=== PATIENT | male | born 1990 | race Caucasian/White ===

== ENCOUNTER 2017-03-07 20:53 | Emergency (ER) | payer OTHER ==
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
== END 2017-03-07 21:27 | disposition left against medical advice (07) ==
LOC: EC 20:53
DX: T40.1X1A Poisoning by heroin, accidental (unintentional), initial encounter (principal); Z53.21 Procedure and treatment not carried out due to patient leaving prior to being seen by health care provider
CPT/HCPCS: 99284

== ENCOUNTER 2017-06-05 11:33 | Inpatient (IN) | payer OTHER ==
[2017-06-05] MEDS ORDERED: KETOROLAC 30 MG/ML 1 ML VIAL IVP STA (12:44)
[2017-06-05 13:25] LABS: Basophils # (A) 0.1 k/uL (0-0.2); Basophils % (A) 0 %; CH 29.1; CHCM 33.6; Eosinophils # (A) 0.1 k/uL (0-0.7); Eosinophils % (A) 1 %; HCT 46.8 % (39.0-53.0); HDW 2.83; HGB 15.1 gm/dL (13.0-17.5); Luc # (Auto) 0.17; Luc % (Auto) 1; Lymphocytes % (A) 11 %; MCH 28.1 pg (25.0-35.0); MCHC 32.3 g/dL (31.0-37.0); MCV 86.9 fL (80.0-100.0); Mean Platelet Volume 6.3; Monocytes # (A) 0.9 k/uL (0-1.0); Monocytes % (A) 5 %; Neutrophils # (A) 14.4 k/uL (1.3-7.7); Neutrophils % (A) 82 %; RBC 5.38 m/uL (4.30-5.90); RDW 12.8 % (11.5-15.5); WBC 17.6 k/uL (3.8-10.6); WBC (Perox) 16.89
[2017-06-05 13:29] LABS: INR 1.1 (<1.2); Partial Thromboplastin Time 26.1 sec (22.0-30.0); Prothrombin Time 11.1 sec (9.0-12.0)
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
[2017-06-05 13:33] LABS: ALT 29 U/L (21-72); AST 16 U/L (17-59); Alkaline Phosphatase 72 U/L (38-126); Anion Gap 15 mmol/L; Blood Urea Nitrogen 18 mg/dL (9-20); Calcium 9.9 mg/dL (8.4-10.2); Carbon Dioxide 25 mmol/L (22-30); Chloride 98 mmol/L (98-107); Glucose 95 mg/dL (74-99); Non-African American GFR(MDRD) >60 (>60 ml/min/1.73 sqM); Potassium 4.4 mmol/L (3.5-5.1); Sodium 138 mmol/L (137-145); Total Bilirubin 1.7 mg/dL (0.2-1.3); Total Protein 7.8 g/dL (6.3-8.2)
[2017-06-05 13:53] LABS: C Reactive Protein 159.6 mg/L (<10.0)
--- NOTE | 2017-06-05 14:05 | US ---
EXAMINATION TYPE: US venous doppler duplex UE LT DATE OF EXAM: 06/05/2017 COMPARISON: None. CLINICAL HISTORY: Pain. hx of thrombosed left basilic vein. Patient states swelling and redness is g etting worse. Was giving antibiotics 2 days ago. SIDE PERFORMED: Left Left Arm: Appears negative for DVT. Appears POSITIVE for SVT in basilic vein. Scanned area of red p alpable lump, large amount of edema seen. IMPRESSION: 1. THIS EXAMINATION IS NEGATIVE FOR DVT IN THE LEFT ARM. 2. THIS EXAMINATION IS POSITIVE FOR SUPERFICIAL THROMBUS WITHIN THE BASILIC VEIN.
[2017-06-05] MEDS ORDERED: VANCOMYCIN IV PER PHARMACY 1 EACH MISC MISCELLANE PRN (14:22)
[2017-06-05] MEDS ORDERED: SODIUM CHLORIDE 0.9% 1,000 ML IV ONE (14:23)
[2017-06-05] MEDS ORDERED: cefTRIAXone IN SWFI 1,000 MG/10 ML SYRINGE IVP STA (14:25)
[2017-06-05] MEDS ORDERED: LORazepam 2 MG/ML INJ IV PRN (14:30)
[2017-06-05] MEDS ORDERED: oxyCODONE-APAP 5-325MG 1 EACH TAB PO PRN (14:30)
[2017-06-05] MEDS ORDERED: NALOXONE 0.4 MG/ML 1 ML VIAL IV PRN (14:30)
[2017-06-05] MEDS ORDERED: IBUPROFEN 400 MG TAB PO PRN (14:30)
[2017-06-05] MEDS ORDERED: ONDANSETRON 4 MG/2 ML VIAL IVP PRN (14:30)
[2017-06-05] MEDS ORDERED: VANCOMYCIN 1,750 MG in SODIUM CHLORIDE 0.9% 250 ML IVPB ONE (14:45)
[2017-06-05] MEDS ORDERED: ACETAMINOPHEN TAB 500 MG TAB PO STA (14:55)
[2017-06-05] MEDS: SODIUM CHLORIDE 0.9% 1,000 ML IV SCH (15:40)
[2017-06-05 16:43] VITALS: BMI 29.5
[2017-06-05] MEDS: HYDROmorphone 1 MG/ML 1 ML SYRINGE IVP PRN ×2 (16:50→20:55)
[2017-06-05] MEDS ORDERED: NICOTINE 14MG/24HR PATCH TRANSDERM SCH (17:00)
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
[2017-06-05] MEDS: KETOROLAC 30 MG/ML 1 ML VIAL IVP PRN (21:04)
[2017-06-05] MEDS: NICOTINE 14MG/24HR PATCH TRANSDERM SCH (21:06)
[2017-06-05] MEDS: VANCOMYCIN 1,500 MG in SODIUM CHLORIDE 0.9% 250 ML IVPB SCH (21:41)
[2017-06-05] MEDS: ACETAMINOPHEN TAB 325 MG TAB PO PRN (23:04)
[2017-06-06] MEDS: HYDROmorphone 1 MG/ML 1 ML SYRINGE IVP PRN ×8 (00:08→23:43)
[2017-06-06] MEDS: KETOROLAC 30 MG/ML 1 ML VIAL IVP PRN ×4 (05:17→23:44)
[2017-06-06] MEDS: SODIUM CHLORIDE 0.9% 1,000 ML IV SCH ×3 (05:17→20:50)
[2017-06-06] MEDS: VANCOMYCIN 1,500 MG in SODIUM CHLORIDE 0.9% 250 ML IVPB SCH ×3 (05:24→20:45)
[2017-06-06] MEDS ORDERED: PANTOPRAZOLE 40 MG/10 ML VIAL IV SCH (09:00)
[2017-06-06] MEDS ORDERED: cefTRIAXone IN SWFI 1,000 MG/10 ML SYRINGE IVP SCH (09:00)
--- NOTE | 2017-06-06 15:02 | P.PN ---
Subjective Patient was admitted for left forearm cellulitis and thrombophlebitis, redness and pain did improve significantly leukocytosis improved patient probably can be discharged tomorrow oral antibiotics patient already has prescription for Bactrim and Keflex patient didn't use them long enough for cellulitis to get better. So patient can continue these medications. Probably will need nonsteroidal anti-inflammatory medications for, phlebitis Constitutional: Denied any fatigue denied any fever. Cardio vascular: denied any chest pain, palpitations Gastrointestinal denied any nausea vomiting Pulmonary: Denied any shortness of breath cough Neurologic denied any new focal deficits Objective - Vital Signs Vital signs: Vital Signs Temp 99.9 F H 06/06/17 07:00 Pulse 93 06/06/17 07:00 Resp 16 06/06/17 07:00 BP 91/57 06/06/17 07:00 Pulse Ox 96 06/06/17 07:00 Intake & Output 06/05/17 06/06/17 06/06/17 18:59 06:59 18:59 Intake Total 1050 Balance 1050 Weight 88 kg Intake: Intake, IV Titration 1050 Amount Sodium Chloride 0.9% 1, 800 000 ml @ 100 mls/hr IV . Q10H [facility] Rx#:[id number] Vancomycin 1,500 mg In 250 Sodium Chloride 0.9% 250 ml @ 125 mls/hr IVPB Q8H [facility] Rx#:[id number] Other: Voiding Method Toilet # Voids 1 - Exam GENERAL: The patient is alert and oriented x3, not in any acute distress. Well developed, well nourished. HEENT: Pupils are round and equally reacting to light. EOMI. No scleral icterus. No conjunctival pallor. Normocephalic, atraumatic. No pharyngeal erythema. No thyromegaly. CARDIOVASCULAR: S1 and S2 present. No murmurs, rubs, or gallops. PULMONARY: Chest is clear to auscultation, no wheezing or crackles. ABDOMEN: Soft, nontender, nondistended, normoactive bowel sounds. No palpable organomegaly. MUSCULOSKELETAL: No joint swelling or deformity. EXTREMITIES: left forearm while is swollen and red severely tender to touch. Improved compared to yesterday NEUROLOGICAL: Gross neurological examination did not reveal any focal deficits. SKIN: No rashes. - Labs CBC & Chem 7: 06/05/17 13:06/05/17 13:05 Assessment and Plan Plan: #1 sepsis: Secondary to left forearm cellulitis and patient also has superficial thrombi Dissen, phlebitis patient will be started on antibiotics in the form of vancomycin blood cultures were obtained. Patient will be started on ketorolac for pain and phlebitis. #2 superficial thrombophlebitis which doesn't warrant any anticoagulation #3 leukocytosis secondary to assessment #1
[2017-06-06] MEDS: NICOTINE 14MG/24HR PATCH TRANSDERM SCH (20:47)
[2017-06-06] MEDS: ACETAMINOPHEN TAB 325 MG TAB PO PRN (22:54)
[2017-06-07] MEDS: HYDROmorphone 1 MG/ML 1 ML SYRINGE IVP PRN ×7 (02:48→21:15)
[2017-06-07 04:42] LABS: CH 28.4; CHCM 32.8; HCT 35.7 % (39.0-53.0); HDW 2.58; MCH 28.5 pg (25.0-35.0); MCHC 32.8 g/dL (31.0-37.0); MCV 86.9 fL (80.0-100.0); Mean Platelet Volume 6.8; RBC 4.11 m/uL (4.30-5.90); RDW 13.7 % (11.5-15.5); WBC 16.8 k/uL (3.8-10.6)
[2017-06-07] MEDS ORDERED: VANCOMYCIN TROUGH DUE 1 EACH MISC MISCELLANE ONE (05:00)
[2017-06-07 05:08] LABS: HGB 11.7 gm/dL (13.0-17.5)
[2017-06-07 05:41] LABS: Anion Gap 7 mmol/L; Blood Urea Nitrogen 15 mg/dL (9-20); Calcium 8.5 mg/dL (8.4-10.2); Carbon Dioxide 23 mmol/L (22-30); Chloride 105 mmol/L (98-107); Glucose 104 mg/dL (74-99); Non-African American GFR(MDRD) >60 (>60 ml/min/1.73 sqM); Potassium 4.4 mmol/L (3.5-5.1); Sodium 135 mmol/L (137-145)
[2017-06-07] MEDS: KETOROLAC 30 MG/ML 1 ML VIAL IVP PRN ×3 (06:14→18:18)
[2017-06-07] MEDS: VANCOMYCIN 1,500 MG in SODIUM CHLORIDE 0.9% 250 ML IVPB SCH ×3 (06:17→21:16)
[2017-06-07] MEDS: PANTOPRAZOLE 40 MG TABLET PO SCH (08:24)
[2017-06-07] MEDS: SODIUM CHLORIDE 0.9% 1,000 ML IV SCH ×2 (15:17→15:18)
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
--- NOTE | 2017-06-07 19:07 | P.PN ---
Subjective Progress Note Date: 06/07/17 Patient seen bedside in no acute events overnight per nursing staff patient stated that there was increased swelling and redness in his arm, however pain is better controlled he states that his wound had come up to inform a white cold but no drainage is been appreciated patient denied any shooting pains patient tolerated his breakfast and lunch he denies any chest pain or shortness of breath no dizziness or lightheadedness patient states that his fevers and chills subsided Objective - Vital Signs Vital signs: Vital Signs Temp 97.3 F L 06/07/17 15:00 Pulse 96 06/07/17 15:00 Resp 16 06/07/17 15:00 BP 133/69 06/07/17 15:00 Pulse Ox 97 06/07/17 15:00 Intake & Output 06/07/17 06/07/17 06/08/17 06:59 18:59 06:59 Intake Total 770 Balance 770 Intake: Intake, IV Titration 250 Amount Vancomycin 1,500 mg In 250 Sodium Chloride 0.9% 250 ml @ 125 mls/hr IVPB Q8H [facility] Rx#:[id number] Oral 520 Other: Voiding Method Toilet Toilet # Voids 1 4 - Exam GENERAL: The patient is alert and oriented x3, not in any acute distress. Well developed, well nourished. Family at bedside nontoxic-appearing is calm and cooperative HEENT: Pupils are round and equally reacting to light. EOMI. No scleral icterus. No conjunctival pallor. Normocephalic, atraumatic. No pharyngeal erythema. No thyromegaly. CARDIOVASCULAR: S1 and S2 present. No murmurs, rubs, or gallops. PULMONARY: Chest is clear to auscultation, no wheezing or crackles. ABDOMEN: Soft, nontender, nondistended, normoactive bowel sounds. No palpable organomegaly. MUSCULOSKELETAL: No joint swelling or deformity. EXTREMITIES: left forearm while is swollen and red severely tender to touch there's measured 13 cm x 7 cm area of raised indurated wound that has central wood no drainage or bleeding it's tender to the touch it was marked with a skin marker at the surrounding edges. NEUROLOGICAL: Gross neurological examination did not reveal any focal deficits. SKIN: No rashes. - Labs CBC & Chem 7: 06/07/17 04:30 06/07/17 04:30 Labs: Abnormal Lab Results - Last 24 Hours (Table) 06/07/17 06/07/17 Range/Units 04:30 04:30 WBC 16.8 H (3.8-10.6) k/uL RBC 4.11 L (4.30-5.90) m/uL Hgb 11.7 L D (13.0-17.5) gm/dL Hct 35.7 L (39.0-53.0) % Sodium 135 L (137-145) mmol/L Glucose 104 H (74-99) mg/dL Microbiology - Last 24 Hours (Table) 06/05/17 13:05 Blood Culture - Preliminary Blood No Growth after 48 hours Assessment and Plan Assessment: Plan: #1 sepsis: Secondary to left forearm cellulitis and patient also has superficial thrombes is seen, phlebitis patient will be started on antibiotics in the form of vancomycin blood cultures were obtained on 06/05/2017 and are no growth after 48 hours. Due to the increasing size general surgery will be consulted for possible I&D, if so cultures of the wound should be sent for Gram stain and growth. Patient instructed on proper hygiene as he is known to be consistently picking at his skin he's had multiple abscesses drained in the past Patient to continue on Percocet 5-325 by mouth every 4 hours for pain along with IV Dilaudid when necessary as ordered ketorolac for pain and phlebitis. #2 superficial thrombophlebitis which doesn't warrant any anticoagulation continue treatment above #3 leukocytosis secondary to assessment #1
[2017-06-07] MEDS: NICOTINE 14MG/24HR PATCH TRANSDERM SCH (21:15)
[2017-06-08] MEDS: HYDROmorphone 1 MG/ML 1 ML SYRINGE IVP PRN ×7 (00:12→22:11)
[2017-06-08] MEDS: KETOROLAC 30 MG/ML 1 ML VIAL IVP PRN ×4 (00:12→18:56)
[2017-06-08] MEDS: VANCOMYCIN 1,500 MG in SODIUM CHLORIDE 0.9% 250 ML IVPB SCH ×3 (05:10→22:11)
[2017-06-08] MEDS: PANTOPRAZOLE 40 MG TABLET PO SCH (07:30)
[2017-06-08 10:14] LABS: ALT 43 U/L (21-72); AST 17 U/L (17-59); Alkaline Phosphatase 50 U/L (38-126); Anion Gap 8 mmol/L; Blood Urea Nitrogen 14 mg/dL (9-20); C Reactive Protein 84.4 mg/L (<10.0); Carbon Dioxide 25 mmol/L (22-30); Chloride 104 mmol/L (98-107); Glucose 107 mg/dL (74-99); Magnesium 2.1 mg/dL (1.6-2.3); Non-African American GFR(MDRD) >60 (>60 ml/min/1.73 sqM); Phosphorus 3.2 mg/dL (2.5-4.5); Potassium 4.5 mmol/L (3.5-5.1); Sodium 137 mmol/L (137-145); Total Bilirubin 0.6 mg/dL (0.2-1.3); Total Protein 5.9 g/dL (6.3-8.2)
[2017-06-08 10:30] LABS: Basophils # (A) 0.1 k/uL (0-0.2); Basophils % (A) 1 %; CH 28.9; CHCM 32.5; Eosinophils # (A) 0.4 k/uL (0-0.7); Eosinophils % (A) 3 %; HCT 38.6 % (39.0-53.0); Luc # (Auto) 0.11; Luc % (Auto) 1; Lymphocytes # (A) 1.4 k/uL (1.0-4.8); Lymphocytes % (A) 12 %; MCH 27.8 pg (25.0-35.0); MCHC 31.2 g/dL (31.0-37.0); MCV 89.2 fL (80.0-100.0); Mean Platelet Volume 6.9; Monocytes # (A) 0.7 k/uL (0-1.0); Monocytes % (A) 6 %; Neutrophils # (A) 9.1 k/uL (1.3-7.7); Neutrophils % (A) 78 %; RBC 4.33 m/uL (4.30-5.90); RDW 12.4 % (11.5-15.5); WBC 11.8 k/uL (3.8-10.6); WBC (Perox) 12.36
[2017-06-08 11:29] LABS: Erythrocyte Sedimentation Rate 52 mm/hr (0-15)
--- NOTE | 2017-06-08 11:54 | P.PN ---
Subjective Progress Note Date: 06/08/17 Patient seen bedside in no acute events overnight per nursing staff. Patient stated that he woke uop this morning and felt something dripping down his left arm and when he uncovered his blanket he noticed his abscess to be draining purulent blood tinged fluid in copious amount, he stated the swelling is somewhat improved and the erythema has receded from the premarked skin marking. Objective - Vital Signs Vital signs: Vital Signs Temp 98.9 F 06/08/17 07:00 Pulse 89 06/08/17 07:00 Resp 16 06/08/17 07:00 BP 115/66 06/08/17 07:00 Pulse Ox 97 06/08/17 07:00 Intake & Output 06/07/17 06/08/17 06/08/17 18:59 06:59 18:59 Intake Total 770 Balance 770 Weight 88 kg Intake: Intake, IV Titration 250 Amount Vancomycin 1,500 mg In 250 Sodium Chloride 0.9% 250 ml @ 125 mls/hr IVPB Q8H HUNTER Rx#:[id number] Oral 520 Other: Voiding Method Toilet Toilet # Voids 4 2 - Exam GENERAL: The patient is alert and oriented x3, not in any acute distress. Well developed, well nourished. nontoxic-appearing is calm and cooperative HEENT: Pupils are round and equally reacting to light. EOMI. No scleral icterus. No conjunctival pallor. Normocephalic, atraumatic. No pharyngeal erythema. No thyromegaly. CARDIOVASCULAR: S1 and S2 present. No murmurs, rubs, or gallops. PULMONARY: Chest is clear to auscultation, no wheezing or crackles. ABDOMEN: Soft, nontender, nondistended, normoactive bowel sounds. No palpable organomegaly. MUSCULOSKELETAL: No joint swelling or deformity. EXTREMITIES: left forearm while is swollen from AC down to the hand, there is dressing wrapped and is stained with purulent blood material, no odor,no streaking appreciated. no axilla lymphadenopathy NEUROLOGICAL: Gross neurological examination did not reveal any focal deficits. SKIN: see above . - Labs CBC & Chem 7: 06/08/17 09:25 06/08/17 09:25 Labs: Abnormal Lab Results - Last 24 Hours (Table) 06/08/17 06/08/17 Range/Units 09:25 09:25 WBC 11.8 H (3.8-10.6) k/uL Hgb 12.0 L (13.0-17.5) gm/dL Hct 38.6 L (39.0-53.0) % Neutrophils # 9.1 H (1.3-7.7) k/uL ESR 52 H (0-15) mm/hr Glucose 107 H (74-99) mg/dL C-Reactive Protein 84.4 H (<10.0) mg/L Total Protein 5.9 L (6.3-8.2) g/dL Albumin 3.0 L (3.5-5.0) g/dL Microbiology - Last 24 Hours (Table) 06/05/17 13:05 Blood Culture - Preliminary Blood No Growth after 48 hours Assessment and Plan Assessment: Plan: #1 sepsis: Secondary to left forearm cellulitis and patient also has superficial thrombus is seen, patient to continue with IV vanc. blood cultures were obtained on 06/05/2017 and are no growth to date. Surgery was consulted and evaluated the patient and have planned to take him for I&D in the OR, will need cultures of the wound should be sent for Gram stain and Cx. Patient instructed on proper hygiene as he is known to be consistently picking at his skin he's had multiple abscesses drained in the past Patient to continue on Percocet 5-325 by mouth every 4 hours for pain along with IV Dilaudid when necessary as ordered ketorolac for pain and phlebitis. #2 superficial thrombophlebitis which doesn't warrant any anticoagulation continue treatment above, vascular surgery to take to OR for I&D and Possible Vein thrombectomy #3 leukocytosis secondary to assessment #1- improving with IV ABX today WBC is 11.8 down from 16.8 yesterday, Continue to monitor
[2017-06-08] MEDS ORDERED: IV FLUID CONTINUATION 1,000 ML IV ONE (13:34)
[2017-06-08] MEDS ORDERED: LIDOCAINE 1% INJ 10MG/ML (20 ML MDV) ONE (14:26)
[2017-06-08] MEDS ORDERED: SUCCINYLCHOLINE CHLORIDE 100 MG/5 ML SYR IV ONE (14:26)
[2017-06-08] MEDS ORDERED: fentaNYL (PF) 50 MCG/ML 2 ML AMP ONE (14:26)
[2017-06-08] MEDS ORDERED: PROPOFOL 10 MG/ML 20 ML VIAL IV ONE (14:26)
[2017-06-08] MEDS ORDERED: HYDROmorphone (PF) 1 MG/ML ONE (14:26)
[2017-06-08] MEDS ORDERED: MIDAZOLAM 2 MG/2 ML VIAL ONE (14:26)
[2017-06-08] MEDS ORDERED: LACTATED RINGERS 1,000 ML IV ONE (14:42)
[2017-06-08] MEDS ORDERED: HYDROGEN PEROXIDE BOTTLE TOPICAL ONE (14:45)
[2017-06-08] MEDS ORDERED: HYDROmorphone 1 MG/ML 1 ML SYRINGE IVP ONE (15:31)
[2017-06-08 17:09] VITALS: RESP 18
[2017-06-08] MEDS: NICOTINE 14MG/24HR PATCH TRANSDERM SCH (20:29)
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
[2017-06-09] MEDS: KETOROLAC 30 MG/ML 1 ML VIAL IVP PRN ×3 (03:45→15:42)
[2017-06-09] MEDS: HYDROmorphone 1 MG/ML 1 ML SYRINGE IVP PRN ×5 (03:45→15:41)
[2017-06-09] MEDS: VANCOMYCIN 1,500 MG in SODIUM CHLORIDE 0.9% 250 ML IVPB SCH ×2 (06:15→12:42)
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
[2017-06-09] MEDS: PANTOPRAZOLE 40 MG TABLET PO SCH (07:35)
[2017-06-09 07:46] LABS: Basophils # (A) 0.1 k/uL (0-0.2); Basophils % (A) 1 %; CH 27.8; CHCM 32.6; Eosinophils # (A) 0.4 k/uL (0-0.7); Eosinophils % (A) 4 %; HCT 36.8 % (39.0-53.0); HDW 2.71; HGB 12.1 gm/dL (13.0-17.5); Luc # (Auto) 0.17; Luc % (Auto) 2; Lymphocytes # (A) 1.4 k/uL (1.0-4.8); Lymphocytes % (A) 16 %; MCH 28.2 pg (25.0-35.0); MCV 85.5 fL (80.0-100.0); Mean Platelet Volume 7.1; Monocytes # (A) 0.5 k/uL (0-1.0); Monocytes % (A) 6 %; Neutrophils # (A) 6.5 k/uL (1.3-7.7); Neutrophils % (A) 72 %; RBC 4.31 m/uL (4.30-5.90); RDW 13.2 % (11.5-15.5); WBC (Perox) 8.95
[2017-06-09 07:54] LABS: Anion Gap 7 mmol/L; Blood Urea Nitrogen 15 mg/dL (9-20); Calcium 8.6 mg/dL (8.4-10.2); Carbon Dioxide 28 mmol/L (22-30); Chloride 104 mmol/L (98-107); Glucose 96 mg/dL (74-99); Non-African American GFR(MDRD) >60 (>60 ml/min/1.73 sqM); Potassium 4.7 mmol/L (3.5-5.1); Sodium 139 mmol/L (137-145)
--- NOTE | 2017-06-09 09:01 | P.PN ---
Progress Note - Text 26 white male, patient had a left I&D and debridement of the forearm today is postoperative day 1 we have changed her dressing base of the wound is clean no discharge noted culture is pending we will use Aquacel silver rope with local wound care and IV antibiotic
--- NOTE | 2017-06-09 14:18 | P.PN ---
Subjective Progress Note Date: 06/09/17 Patient seen bedside in no acute events overnight per nursing staff. Pt is s/p POD#1 from I&D of left forearm abscess, cultures sent, he tolerated the procedure well. He has no complaints other than eagerness to go home. Objective - Vital Signs Vital signs: Vital Signs Temp 97.2 F L 06/09/17 07:00 Pulse 82 06/09/17 07:00 Resp 18 06/09/17 07:00 BP 108/64 06/09/17 07:00 Pulse Ox 97 06/09/17 07:00 Intake & Output 06/08/17 06/09/17 06/09/17 18:59 06:59 18:59 Intake Total 550 1200 Output Total 15 Balance 535 1200 Intake: IV 550 Oral 1200 Output: Estimated Blood Loss 15 Other: Voiding Method Toilet Toilet # Voids 2 2 2 # Bowel Movements 0 - Exam GENERAL: The patient is alert and oriented x3, not in any acute distress. Well developed, well nourished. nontoxic-appearing is calm and cooperative HEENT: Pupils are round and equally reacting to light. EOMI. No scleral icterus. No conjunctival pallor. Normocephalic, atraumatic. No pharyngeal erythema. No thyromegaly. CARDIOVASCULAR: S1 and S2 present. No murmurs, rubs, or gallops. PULMONARY: Chest is clear to auscultation, no wheezing or crackles. ABDOMEN: Soft, nontender, nondistended, normoactive bowel sounds. No palpable organomegaly. MUSCULOSKELETAL: No joint swelling or deformity. EXTREMITIES: left forearm has post surgical dressing in place and that was not removed,, the dressing is clean and dry intact, Hand appears less swollen than the day prior. NEUROLOGICAL: Gross neurological examination did not reveal any focal deficits. SKIN: see above . - Labs CBC & Chem 7: 06/09/17 07:16 06/09/17 07:16 Labs: Abnormal Lab Results - Last 24 Hours (Table) 06/09/17 Range/Units 07:16 Hgb 12.1 L (13.0-17.5) gm/dL Hct 36.8 L (39.0-53.0) % Microbiology - Last 24 Hours (Table) 06/08/17 13:00 Gram Stain - Preliminary Arm - Left Wound Culture - Preliminary 06/08/17 14:40 Gram Stain - Preliminary Arm - Left Wound Culture - Preliminary 06/08/17 14:40 Anaerobic Culture - Preliminary Arm - Left 06/05/17 13:05 Blood Culture - Preliminary Blood No Growth after 72 hours Assessment and Plan Assessment: Plan: #1 sepsis: Secondary to left forearm abscess with cellulitis pod #1 from I&D and patient also has superficial thrombus is seen, patient to continue with IV vanc. blood cultures were obtained on 06/05/2017 and are no growth to date. I& D cx are still pending. ID on case and recommend patient to stay while Cx results are back in order to determine the ABX treatment, He had infection with MSSA in the past and has PCN allergy, Patient instructed on proper hygiene as he is known to be consistently picking at his skin he's had multiple abscesses drained in the past Patient to continue on Percocet 5-325 by mouth every 4 hours for pain along with IV Dilaudid when necessary as ordered ketorolac for pain and phlebitis. #2 superficial thrombophlebitis which doesn't warrant any anticoagulation continue treatment above, #3 leukocytosis secondary to assessment #1- improving with IV ABX today WBC is 9.0 down from 17.6 on admission, Continue to monitor #4 On going tobacco use and abuse, patient consuled for >10 minutes on harmful effect of smoking and overall health and delay in wound healing, he was advised to quit, DVT / GI prophylaxsis per protocol anticipate d/c when cx return and appropriate ABX can be given per ID recs
[2017-06-09 14:51] VITALS: BP 124/67; PULSE 86; TEMP 98.9
--- NOTE | 2017-06-09 15:18 | PN ---
PROGRESS NOTE DATE OF SERVICE: 06/09/2017 REASON FOR FOLLOWUP: Left of forearm cellulitis. INTERVAL HISTORY: The patient is afebrile. He is status post drainage of left forearm abscess. Overall, pain to the area is currently controlled. Denies any chest pain, shortness of breath, or cough. No abdominal pain or any diarrhea. PHYSICAL EXAMINATION: Blood pressure 108/64 with a pulse of 82, temperature 97.2. He is 97% on room air. General description is a middle-aged male lying in bed, in no distress. RESPIRATORY SYSTEM: Unlabored breathing, clear to auscultation anteriorly. HEART: S1, S2. Regular rate and rhythm. ABDOMEN: Soft, no tenderness. Left forearm wound deep with good granulation tissue at the base; surrounding swelling, redness and irritation has improved. LABS: Hemoglobin is 12.1, white count 9.0, BUN of 15, creatinine 0.79. Wound culture currently pending. DIAGNOSTIC IMPRESSION AND PLAN: Patient left forearm abscess, status post drainage. Patient at this time will be continued on the vancomycin. Await further culture to finalize to determine discharge antibiotics. Local wound care with Aquacel Silver packing. Continue supportive care. MMODL / IJN: [id number] /
[2017-06-10] MEDS ORDERED: VANCOMYCIN TROUGH DUE 1 EACH MISC MISCELLANE ONE (05:00)
== END 2017-06-09 17:24 | disposition left against medical advice (07) | DRG 854 ==
LOC: EC 11:33 → 4MS4W 14:19
PROVIDERS: ADMIT Internal Medicine; ATTEND Internal Medicine
PROC: 0JBH0ZZ Excision of Left Lower Arm Subcutaneous Tissue and Fascia, Open Approach (ICD-10-PCS; principal; 2017-06-08 11:40)
DX: A41.9 Sepsis, unspecified organism (principal); L02.414 Cutaneous abscess of left upper limb; I80.8 Phlebitis and thrombophlebitis of other sites; L03.114 Cellulitis of left upper limb; F14.11 Cocaine abuse, in remission; F17.200 Nicotine dependence, unspecified, uncomplicated; Z88.0 Allergy status to penicillin; V86.96XA Unspecified occupant of dirt bike or motor/cross bike injured in nontraffic accident, initial encounter
CPT/HCPCS: 36415; 80048; 80053; 80202; 83735; 84100; 85025; 85027; 85610; 85652; 85730; 86140; 87040; 87070; 87075; 87205; 96374; 96375; 99285

== ENCOUNTER 2019-08-13 13:12 | Emergency (ER) | payer OTHER ==
[2019-08-13 13:22] VITALS: BP 124/86; PULSE 97; RESP 20; TEMP 98.7
[2019-08-13] MEDS ORDERED: ACETAMINOPHEN TAB 500 MG TAB PO STA (13:53)
--- NOTE | 2019-08-13 14:33 | XR ---
EXAMINATION TYPE: XR chest 2V DATE OF EXAM: 08/13/2019 COMPARISON: HISTORY: Cough and fever TECHNIQUE: Frontal and lateral views of the chest are obtained. FINDINGS: There is no focal air space opacity, pleural effusion, or pneumothorax seen. The cardiac silhouette size is within normal limits. The osseous structures are intact. IMPRESSION: No acute cardiopulmonary process.
--- NOTE | 2019-08-13 14:47 | ED ---
URI HPI - General Chief Complaint: Upper Respiratory Infection Stated Complaint: poss flu/high fever Time Seen by Provider: 08/13/19 13:40 Source: patient, RN notes reviewed, old records reviewed Mode of arrival: ambulatory Limitations: no limitations - History of Present Illness Initial Comments: 29-year-old male without any past medical history presents to the emergency department for a chief complaint of "flulike symptoms." Patient states he has had congestion sore throat cough since yesterday morning. States he feels febrile and has had body aches. States he has been taking Motrin and Tylenol. Patient is a current every day smoker. States he has multiple sick contacts at home. Patient actually presents with his for other feeling hours to have the same symptoms.Patient has no other complaints at this time including shortness of breath, chest pain, abdominal pain, nausea or vomiting, headache, or visual changes. - Related Data Home Medications Medication Instructions Recorded Confirmed Sulfamethox-Tmp 800-160Mg [Bactrim 2 tab PO Q12HR 06/05/17 06/05/17 DS 800-160 mg] Previous Rx's Medication Instructions Recorded Cephalexin [Keflex] 500 mg PO Q6HR #40 cap 06/03/17 Ketorolac [Toradol] 10 mg PO Q6HR #20 tab 06/03/17 Acetaminophen [Tylenol] 500 mg PO Q4-6H PRN #20 tab 08/13/19 Ibuprofen [Motrin] 600 mg PO Q6HR PRN #20 tab 08/13/19 Oseltamivir [Tamiflu] 75 mg PO Q12HR #10 cap 08/13/19 Allergies Allergy/AdvReac Type Severity Reaction Status Date / Time Penicillins Allergy Unknown Verified 08/13/19 13:19 Review of Systems ROS Statement: Those systems with pertinent positive or pertinent negative responses have been documented in the HPI. ROS Other: All systems not noted in ROS Statement are negative. Past Medical History Past Medical History: No Reported History History of Any Multi-Drug Resistant Organisms: None Reported Past Surgical History: No Surgical Hx Reported Past Psychological History: No Psychological Hx Reported Smoking Status: Current every day smoker Past Alcohol Use History: None Reported Past Drug Use History: None Reported - Past Family History Mother Family Medical History: No Reported History Father Family Medical History: No Reported History General Exam Limitations: no limitations General appearance: alert, in no apparent distress Head exam: Present: atraumatic, normocephalic, normal inspection Eye exam: Present: normal appearance, PERRL, EOMI. Absent: scleral icterus, conjunctival injection, periorbital swelling ENT exam: Present: normal exam, normal oropharynx, mucous membranes moist, TM's normal bilaterally, normal external ear exam Neck exam: Present: normal inspection, full ROM. Absent: tenderness, meningismus, lymphadenopathy Respiratory exam: Present: normal lung sounds bilaterally. Absent: respiratory distress, wheezes, rales, rhonchi, stridor Cardiovascular Exam: Present: regular rate, normal rhythm, normal heart sounds. Absent: systolic murmur, diastolic murmur, rubs, gallop, clicks GI/Abdominal exam: Present: soft, normal bowel sounds. Absent: distended, t enderness, guarding, rebound, rigid Neurological exam: Present: alert Course Vital Signs 08/13/19 08/13/19 13:20 13:56 Temperature 98.7 F Pulse Rate 97 Respiratory 20 20 Rate Blood Pressure 124/86 O2 Sat by Pulse 97 Oximetry Medical Decision Making - Medical Decision Making Patient is well-appearing, nontoxic. Vitals are stable. He is afebrile at this time. Chest x-ray shows no acute cardio pulmonary process. Influenza B is positive. Strep is negative. Discussed risks versus benefits of Tamiflu. At this time patient wishes for me to write prescription and he will decide later. He does request perception for Motrin and Tylenol. Discussed drinking any fluids and following up with primary care in 1-2 days. Discussed returning here if he has any worsening symptoms. - Lab Data Lab Results 08/13/19 08/13/19 Range/Units 13:30 13:53 Influenza Type A RNA Not Detected (Not Detectd) Influenza Type B (PCR) Detected H (Not Detectd) Group A Strep Rapid Negative (Negative) Disposition Clinical Impression: Influenza B Disposition: HOME SELF-CARE Condition: Good Instructions (If sedation given, give patient instructions): Oseltamivir (By mouth), Influenza (ED) Prescriptions: Ibuprofen [Motrin] 600 mg PO Q6HR PRN #20 tab PRN Reason: Pain Oseltamivir [Tamiflu] 75 mg PO Q12HR #10 cap Acetaminophen [Tylenol] 500 mg PO Q4-6H PRN #20 tab PRN Reason: Pain Is patient prescribed a controlled substance at d/c from ED?: No Referrals: Sheridan Griffith MD [Primary Care Provider] - 1-2 days Time of Disposition: 14:45
== END 2019-08-13 15:07 | disposition home or self-care (01) ==
LOC: EC 13:12
DX: J10.1 Influenza due to other identified influenza virus with other respiratory manifestations (principal); F17.200 Nicotine dependence, unspecified, uncomplicated; Z88.0 Allergy status to penicillin
CPT/HCPCS: 71046; 87081; 87430; 87502; 99284

== ENCOUNTER 2022-07-25 20:50 | Emergency (ER) | payer OTHER ==
[2022-07-25 20:58] VITALS: RESP 18; TEMP 97.9
[2022-07-25] MEDS ORDERED: DIPH,PERTUS(ACELL)TETVAC-LF 0.5 ML VIAL IM ONE (21:12)
[2022-07-25] MEDS ORDERED: MORPHINE SULFATE 4 MG/ML SYRINGE IM STA ×2 (21:33→23:20)
[2022-07-25] MEDS ORDERED: LIDOCAINE 1% PF 10 MG/ML (5 ML AMP) SQ ONE (22:09)
--- NOTE | 2022-07-25 22:10 | XR ---
EXAMINATION TYPE: XR finger RT DATE OF EXAM: 07/25/2022 COMPARISON: NONE HISTORY: Laceration TECHNIQUE: 3 views FINDINGS: 3 views of the right middle finger were obtained. There is small tight S-shaped linear dens ity measuring 6 mm projected in the soft tissues adjacent to the mid shaft of the proximal phalanx of the middle finger and consistent with a foreign body. No fracture seen. Joint spaces are normal. IMPRESSION: No fracture. Anterior soft tissue foreign body.
[2022-07-25] MEDS ORDERED: KETOROLAC 15 MG/ML 1 ML VIAL IM STA (23:20)
--- NOTE | 2022-07-25 23:24 | ED ---
General Adult HPI - General Chief complaint: Extremity Injury, Upper Stated complaint: R hand finger lac Time Seen by Provider: 07/25/22 21:01 Source: patient Mode of arrival: ambulatory Limitations: no limitations - History of Present Illness Initial comments: This is a 32-year-old male with no reported past medical history presents emergency department for a finger laceration. The patient stated that he was drinking at his [facility] [employer] when he fell, landing on a [employer] bulb causing a laceration to the base of his right index finger. The patient noted immediately that he was able to move his finger and had significant pain speaking rate to the emergency department. The patient denied any other lacerations or trauma. The patient did not know his last tetanus shot. The patient was resting in bed comfortably without any lightheadedness or dizziness - Related Data Home Medications Medication Instructions Recorded Confirmed Sulfamethox-Tmp 800-160Mg [Bactrim 2 tab PO Q12HR 06/05/17 06/05/17 DS 800-160 mg] Previous Rx's Medication Instructions Recorded Cephalexin [Keflex] 500 mg PO Q6HR #40 cap 06/03/17 Ketorolac [Toradol] 10 mg PO Q6HR #20 tab 06/03/17 Acetaminophen [Tylenol] 500 mg PO Q4-6H PRN #20 tab 08/13/19 Ibuprofen [Motrin] 600 mg PO Q6HR PRN #20 tab 08/13/19 Oseltamivir [Tamiflu] 75 mg PO Q12HR #10 cap 08/13/19 Naproxen [Naprosyn] 500 mg PO BID #30 tab 07/25/22 Allergies Allergy/AdvReac Type Severity Reaction Status Date / Time Penicillins Allergy Unknown Verified 07/25/22 20:58 Review of Systems ROS Statement: Those systems with pertinent positive or pertinent negative responses have been documented in the HPI. ROS Other: All systems not noted in ROS Statement are negative. Past Medical History Past Medical History: No Reported History History of Any Multi-Drug Resistant Organisms: None Reported Past Surgical History: No Surgical Hx Reported Past Psychological History: No Psychological Hx Reported Smoking Status: Vaper Past Alcohol Use History: None Reported Past Drug Use History: None Reported - Past Family History Mother Family Medical History: No Reported History Father Family Medical History: No Reported History General Exam Limitations: no limitations General appearance: alert, in no apparent distress Head exam: Present: atraumatic, normocephalic, normal inspection Eye exam: Present: normal appearance, PERRL Pupils: Present: normal accommodation ENT exam: Present: normal exam, normal oropharynx, mucous membranes moist Neck exam: Present: normal inspection, full ROM Respiratory exam: Present: normal lung sounds bilaterally Cardiovascular Exam: Present: regular rate, normal rhythm, normal heart sounds GI/Abdominal exam: Present: soft, normal bowel sounds Extremities exam: Present: normal inspection, full ROM, other (Approximately 4 similar laceration noted to the base of the right middle finger with no range of motion secondary to likely tendon laceration.) Back exam: Present: normal inspection, full ROM Neurological exam: Present: alert, oriented X3, CN II-XII intact Psychiatric exam: Present: normal affect, normal mood Skin exam: Present: warm, dry Course Vital Signs 07/25/22 07/26/22 20:55 00:47 Temperature 97.9 F 97.9 F Pulse Rate 88 90 Respiratory 18 18 Rate Blood Pressure 97/59 109/68 O2 Sat by Pulse 99 99 Oximetry Procedures - Laceration Laceration #1 Consent Obtained: verbal consent Indication: laceration Site: hand (Base of the right middle finger) Size (cm): 4 Description: linear Depth: simple, single layer, involves tendon Sedation/Analgesia: none Anesthetic Used: lidocaine 1% Anesthesia Technique: local infiltration Amount (mls): 7 Pre-repair: irrigated extensively, foreign body removed Type of Sutures: nylon Size of Sutures: 5-0 Number of Sutures: 6 Technique: simple, interrupted Complications: nerve injury Patient Tolerated Procedure: well - Orthopedic Splinting/Casting Injury #1 Side: right Upper Extremity Injury Location: finger (Middle finger) Upper Extremity Immobilizer: aluminum form splint (Metal finger splint) Medical Decision Making - Medical Decision Making Was pt. sent in by a medical professional or institution? @ -No Did you speak to anyone other than the patient for history? @ -No Did you review nursing and triage notes? @ -Triage notes were obtained and reviewed Were old charts reviewed? @ -No Differential Diagnosis? @ -Finger laceration, tendon rupture, tendon laceration, muscle laceration EKG interpreted by me (3pts min.)? @ -[none] X-rays interpreted by me (1pt min.)? @ -X-ray of the right middle finger was obtained and was interpreted by myself and showed a superficial foreign body otherwise no fracture noted CT interpreted by me (1pt min.)? @ -[none] U/S interpreted by me (1pt. min.)? @ -[none] What testing was considered but not performed? (CT, X-rays, U/S, labs)? Why? @None What meds were considered but not given? Why? @ -[none] Did you discuss the management of the patient with other professionals? @ -No Did you reconcile home meds? @ -[none] Was smoking cessation discussed for >3mins.? @ -Yes Was critical care preformed (if so, how long)? @ -[none] Were there social determinants of health that impacted care today? How? (Homelessness, low income, unemployed, alcoholism, drug addiction, transportation, low edu. Level, literacy, decrease access to med. care, [facility], rehab)? @ -No Was there de-escalation of care discussed even if they declined? (Discuss DNR or withdrawal of care, Hospice)? @ -No What co-morbidities impacted this encounter? (DM, HTN, Smoking, COPD, CAD, Ca ncer, CVA, Hep., AIDS, mental health diagnosis, sleep apnea, morbid obesity)? @ -No Was patient admitted / discharged? @ -The patient was seen and evaluated emergency department. Physical exam, the patient was resting in bed without any acute distress. Vital signs admission were stable. The patient's laceration was thoroughly cleaned and x-ray was obtained showing a superficial foreign body which was irrigated. The patient did receive a dose of pain medications and did require a second dose of pain medications once a laceration repair was performed. The patient did have any movement of the digit likely secondary to the patient's tendon laceration and nerve involvement. The patient's laceration was closed however the patient did require further evaluation by a hand surgeon. The patient was also placed in a finger splint. The patient was given follow-up instructions for Dr. Viramontes and told of the importance of following up with her in the office for further evaluation and surgical management. The patient was understanding of this and all discretions were answered appropriately. The patient did receive a second dose of pain medications as well as Toradol via IM prior to discharge and stated that he did not want any further medications at home. The patient was given a prescription for naproxen to be taken at home if he needs further pain medications. The patient stated that he use to be a drug addict and did not want to be addicted to any narcotic medications at this time. The patient was stable for discharge and was discharged home in stable condition. Undiagnosed new problem with uncertain prognosis? @ -[none] Drug Therapy requiring intensive monitoring for toxicity (Heparin, Nitro, Insulin, Cardizem)? @ -[none] Were any procedures done? @ -[none] Diagnosis/symptom? @ -Finger laceration, tendon laceration Acute, or Chronic, or Acute on Chronic? @ -Acute Uncomplicated (without systemic symptoms) or Complicated (systemic symptoms)? @ -Uncomplicated Side effects of treatment? @ -[none] Exacerbation, Progression, or Severe Exacerbation] @ -[no] Poses a threat to life or bodily function? @ -[no] Disposition Clinical Impression: Finger laceration involving tendon Disposition: HOME SELF-CARE Condition: Stable Instructions (If sedation given, give patient instructions): Finger Laceration (ED) Prescriptions: Naproxen [Naprosyn] 500 mg PO BID #30 tab Is patient prescribed a controlled substance at d/c from ED?: No Referrals: None,Stated [Primary Care Provider] - 1-2 days Macy Viramontes DO [Doctor of Osteopathic Medicine] - 1-2 days Time of Disposition: 23:20
[2022-07-26 00:48] VITALS: BP 109/68; PULSE 90
== END 2022-07-26 00:55 | disposition home or self-care (01) ==
LOC: EC 20:50
DX: S61.210A Laceration without foreign body of right index finger without damage to nail, initial encounter (principal); F17.290 Nicotine dependence, other tobacco product, uncomplicated; Z88.0 Allergy status to penicillin; X58.XXXA Exposure to other specified factors, initial encounter; Z23 Encounter for immunization
CPT/HCPCS: 99283; 12002; 96372 ×3; 90471; 73140; 90715; J2270; J2001; J1885

== ENCOUNTER 2024-09-28 10:03 | Day surgery (SDC) | payer OTHER ==
[2024-09-26 14:51] VITALS: BMI 29.5
[2024-09-28 10:38] VITALS: RESP 18; TEMP 98.2
[2024-09-28] MEDS ORDERED: PROPOFOL 10 MG/ML 20 ML VIAL IV ONE (11:00)
[2024-09-28] MEDS: LACTATED RINGERS 1,000 ML IV SCH (11:04)
--- NOTE | 2024-09-28 11:24 | P.PCN ---
Date of Procedure: 09/28/24 Procedure(s) Performed: BRIEF HISTORY: Patient is a 34-year-old pleasant white male scheduled for an elective colonoscopy as a part of evaluation of chronic diarrhea for the last 5 years duration. He has 5-6 loose watery bowel movements daily. No blood or mucus in the stool. PROCEDURE PERFORMED: Colonoscopy. PREOPERATIVE DIAGNOSIS: Chronic diarrhea. IV sedation per Anesthesia. PROCEDURE: After informed consent was obtained, the patient, was brought into the endoscopy unit. IV sedation was administered by Anesthesia under continuous monitoring. Digital rectal examination was normal. Initially the Olympus CF-160 flexible video colonoscope was then inserted in the rectum, gradually advanced i nto the cecum without any difficulty. Careful examination was performed as the scope was gradually being withdrawn. Ileocecal valve and the appendiceal orifice were visualized and appeared normal. Was intubated and 20 cm visualized and appeared normal. Prep was excellent. Mucosa of the cecum, ascending colon, transverse colon, descending colon, sigmoid colon, and rectum appeared normal. Biopsies were done from the ascending and descending colon to rule out microscopic/collagenous colitis. Retroflexion was performed in the rectum and no lesions were seen. The patient tolerated the procedure well. IMPRESSION: Normal-appearing colon from rectum to cecum with no evidence of colorectal neoplasia. RECOMMENDATIONS: Findings of this examination were discussed with the patient as well as his family. He was advised to follow-up with the biopsy results. Recommend using Imodium as needed. Repeat colonoscopy in 10 years..
[2024-09-28 11:46] VITALS: BP 130/85; PULSE 70
== END 2024-09-28 12:02 ==
LOC: ORWHC2ENDO 10:03
PROVIDERS: ATTEND Internal Medicine Gastroenterology
DX: K52.9 Noninfective gastroenteritis and colitis, unspecified (principal); F17.210 Nicotine dependence, cigarettes, uncomplicated; Z88.0 Allergy status to penicillin; Z79.899 Other long term (current) drug therapy
CPT/HCPCS: 45380; J2704; 88305